=== PATIENT | female | born 1960 | race African-American/Black ===

== ENCOUNTER 2016-11-22 16:38 | Outpatient (CLI) ==
[2015-10-22 20:38] VITALS: BMI 31.2
[2016-11-22 17:08] LABS: FLU INTERNAL QC INTERNAL QC VALID; RAPID FLU A NEGATIVE (NEGATIVE); RAPID FLU B NEGATIVE (NEGATIVE)
== END 2016-11-22 16:39 | disposition home or self-care (01) ==
LOC: LAB 16:38
PROVIDERS: ATTEND Nurse Practitioner Family
DX: R50.9 Fever, unspecified (principal); R52 Pain, unspecified
CPT/HCPCS: 87651; 87804; 87880

== ENCOUNTER 2017-10-09 15:09 | Outpatient (RCR) ==
[2015-10-22 20:38] VITALS: BMI 31.2
--- NOTE | 2017-10-10 14:47 | RS.OPPTEV2 ---
Date of Note: 10/09/17 Visit #: 1 Date of Evaluation: 10/09/17 Payer Source: Medicaid Surgery Performed?: No Treatment Diagnosis: R posterior tibial tendonitis History of Condition/Mechanism of Injury:: pt states that she began having pain approx 6 months ago. No definitive injury noted. Prior Level of Function.....Patient was independent with: ADL's, Self Care, Work /Vocation, Ambulation/Mobility, Community Integration/Access Functional Limitations: Standing, Ambulation Current Subjective/complaints:: pt states that her pain is worst in am when first standing on R LE or after sitting for a while and standing. pt reports it doesn't seem to matter which shoes she is wearing. Treatment Side (optional): Right *Precautions: n/a Medical History Medical History: Unremarkable Smoking Status: Current every day smoker Hx Home Medications: no current medications Patient's Goals: to decrease pain in R medial ankle. Pain Assessment - Pain Description Pain Location: R medial ankle posterior to malleolus Pain Description: Sharp, Aching Current Pain Intensity: 6/10 Functional Outcome Measure LE Functional Scale: 59 (26%) - G Codes & Severity Modifier G Codes & Modifier: n/a Source of G Code score: n/a Observation - Observation Inspection: min edema noted in R medial ankle Posture: Forward Head, Rounded Shoulders Handedness: Right Gait - Gait Pattern Gait Comments: pt presents with B foot pronation R worse than L General Range of Motion: WFL's all 4 extr's Muscle Strength: BUE 5/5. LLE 5/5. RLE hip flex 5/5, knee flex/ext 4+/5, ankle 4+/5 Ankle ROM: Left WFL's Ankle Muscle Strength: Left WFL's - Right Ankle ROM Right Ankle/Foot ROM Limitations: Pain Comments: pt ROM R ankle equal to L, WFL's pt c/o pain with DF and Inversion and Eversion Palpation Palpation Findings: Tenderness Comments:: R medial ankle posterior to malleolus Sensation - Sensation Right Upper Extremity: Intact/Normal Left Upper Extremity: Intact/Normal Right Lower Extremity: Intact/Normal Left Lower Extremity: Intact/Normal Balance - Sitting Balance Static Sitting Balance: Normal Dynamic Sitting Balance: Normal - Standing Balance Static Standing Balance: Normal Dynamic Standing Balance: Normal - Comments Balance Assessment Comments: good dyn stand balance - Treatment Modality: Ultrasound Parameters/Method Applied: 1.2w/cm2 x 7 mins Treatment Area: R medial ankle Patient Position: Supine - Heat/Cryotherapy Treatment: Cryotherapy Comments:: R ankle Interventions - Exercise/Activities/Manual Therapy Exercises/Activities: pt instructed in heel cord towel stretch, ankle alphabet, toe curls, standing heel cord stretch. Manual Therapy: n/a HOME EXERCISE PROGRAM: pt given written HEP including calf towel stretch, toe curls, ankle alphabet and standing heel cord stretch. - Charges Timed Code Treatment Minutes: 48 Total Treatment Time: 60 Procedures billed for this date of service:: [facility] ultrasound cold pack Assessment Assessment: pt presents with pain and min edema R medial ankle. pt also presents with pronation B ankles R worse than L. Feel pt would benefit from skilled PT for therex for strengthening, ROM as well as modalities to decreased inflammation and pain. Advised pt to speak with MD regarding custom orthotics for B feet to correct pronation and decrease strain to tendon. Patient Education: Home Exercise Program, Activity Modification, Education of Plan of Care Rehab Potential: Good Short Term Goals Goal #1: pain R medial ankle <5/10 Goal to be met by: 10/17/17 Goal #2: pt with no edema R medial ankle Goal to be met by: 10/17/17 Education Department Registrar Goals Goal #1: pt able to stand during a normal work day with min foot pain. Goal to be met by: 10/24/17 Goal #2: pt amb community distances with min foot pain Goal to be met by: 10/24/17 Plan - Treatment to be Provided Procedures: Therapeutic Exercises, Therapeutic Activity, Gait Training, Manual Therapy, Patient Education Modalities: Electrical Stimulation, Ultrasound/Phonophoresis, Class IV Laser, Cryotherapy, Hot Packs - Treatment Plan Frequency: 2 X week Duration: 6 weeks ORDER # VISITS AND/OR THROUGH DATE: 11/20/17 - Treatment Code (1) Ankle pain Code(s): M25.579 - PAIN IN UNSPECIFIED ANKLE AND JOINTS OF UNSPECIFIED FOOT Qualifiers: Chronicity: chronic Laterality: right Qualified Code(s): M25.571 - Pain in right ankle and joints of right foot; G89.29 - Other chronic pain; G89.29 - Other chronic pain (2) Posterior tibial tendinitis, right leg Code(s): M76.821 - POSTERIOR TIBIAL TENDINITIS, RIGHT LEG
--- NOTE | 2017-10-16 14:43 | RS.OPPTDC ---
Date of Discharge: 10/13/17 Date of Evaluation: 10/09/17 Number of Visits: 1 Treatment Diagnosis: R posterior tibial tendonitis Current Level of Function: pt remains at same functional level as eval. Current Complaints/Gains: pt called and stated PT not helping so she wants to stop PT at this time. Functional Outcome Measure - G Codes & Severity Modifier G Codes & Modifier: n/a Source of G Code score: n/a Observation - Observation Posture: Forward Head, Rounded Shoulders, Increased Thoracic Kyphosis Gait - Gait Pattern General Gait Pattern Observation: Antalgic Gait Interventions - Exercise/Activities/Manual Therapy Exercises/Activities: n/a Manual Therapy: n/a HOME EXERCISE PROGRAM: pt given written HEP including calf towel stretch, toe curls, ankle alphabet and standing heel cord stretch. - Charges Timed Code Treatment Minutes: n/a Total Treatment Time: n/a Procedures billed for this date of service:: n/a Assessment Assessment: pt did not achieve goals due to only received PT eval and called to stop any further PT visits. 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 Goal to be met by: 10/24/17 Progress towards goal: Not Met Goal #2: pt amb community distances with min foot pain Goal to be met by: 10/24/17 Progress towards goal: Not Met Plan Reason for Discharge:: Poor Attendance/Compliance Comments: DC per patient request.
== END 2017-10-25 ==
DX: M77.9 Enthesopathy, unspecified (principal)

== ENCOUNTER 2017-10-19 12:29 | Outpatient (CLI) ==
[2015-10-22 20:38] VITALS: BMI 31.2
== END 2017-10-19 12:30 | disposition home or self-care (01) ==
LOC: LAB 12:29
PROVIDERS: ATTEND Nurse Practitioner Family
DX: R05 Cough (principal)
CPT/HCPCS: 87502

== ENCOUNTER 2017-11-10 13:00 | Outpatient (CLI) ==
[2015-10-22 20:38] VITALS: BMI 31.2
--- NOTE | 2017-11-13 08:28 | MAMMO ---
EXAM: Bilateral digital screening mammogram (2-D and 3-D) History: Screening Comparison: Bilateral mammogram 09/28/2015 Findings: MLO and CC views of bilateral breasts demonstrate heterogeneously dense breast parenchyma which can obscure small lesions. CAD was reviewed by the radiologist. Tomosynthesis was performed. Stable benign coarse calcification within the right breast. There are no dominant masses, no suspic ious microcalcifications and no architectural distortions. Impression: Benign stable mammogram. Recommend followup routine screening mammogram in 1 year. BIRADS 2
== END 2017-11-10 13:01 | disposition home or self-care (01) ==
LOC: RAD 13:00
PROVIDERS: ATTEND Nurse Practitioner Family
DX: Z12.31 Encounter for screening mammogram for malignant neoplasm of breast (principal)
CPT/HCPCS: 77067

== ENCOUNTER 2018-08-03 09:01 | Outpatient (CLI) ==
[2015-10-22 20:38] VITALS: BMI 31.2
--- NOTE | 2018-08-03 11:09 | US ---
EXAM: Right upper quadrant abdominal ultrasound. History: Abdominal pain and nausea. Technique: Multiple sonographic images through the abdomen were obtained. Color duplex Doppler was used to interrogate vascular flow. Findings: The liver is not enlarged according to the sonographic measurement given. No focal liver lesions angel ntified sonographically. There is antegrade flow within the main portal vein. Visualized pancreas d emonstrates no gross abnormality. Limited visualization of the right kidney demonstrates no evidence for hydronephrosis. No shadowing gallstones. Gallbladder wall is not thickened. Common bile duct measures 0.3 cm in caliber. Impression: Unremarkable exam
== END 2018-08-03 09:02 | disposition home or self-care (01) ==
LOC: RAD 09:01
PROVIDERS: ATTEND Nurse Practitioner Family
DX: R10.9 Unspecified abdominal pain (principal); R11.2 Nausea with vomiting, unspecified

== ENCOUNTER 2018-10-20 08:58 | Outpatient (CLI) ==
[2015-10-22 20:38] VITALS: BMI 31.2
== END 2018-10-20 08:59 | disposition home or self-care (01) ==
LOC: LAB 08:58
PROVIDERS: ATTEND Nurse Practitioner Family
DX: Z00.00 Encounter for general adult medical examination without abnormal findings (principal)
CPT/HCPCS: 36415; 80053; 80061; 84443; 85025

== ENCOUNTER 2018-10-30 13:38 | Outpatient (CLI) ==
[2015-10-22 20:38] VITALS: BMI 31.2
== END 2018-10-30 13:39 | disposition home or self-care (01) ==
LOC: RHC-LAB 13:38
PROVIDERS: ATTEND Nurse Practitioner Family
DX: R05 Cough (principal)
CPT/HCPCS: 87502; 87651

== ENCOUNTER 2018-12-21 10:17 | Outpatient (CLI) ==
[2015-10-22 20:38] VITALS: BMI 31.2
--- NOTE | 2018-12-21 12:24 | MAMMO ---
EXAM: Digital screening mammogram with tomosynthesis HISTORY: Screening COMPARISON: 11/10/2017 FINDINGS: Digital MLO and CC views of the right and left breast were performed. Tomosynthesis was p erformed. Computer aided detection utilized. The breast tissue is heterogeneously dense, which coul d obscure small masses. Benign calcification right breast. There is no evidence for mass, asymmetry , distortion, or suspicious calcifications in either breast. IMPRESSION: 1. No evidence of malignancy in the right or left breast. 2. Annual screening mammogram is recommended in one year. BIRADS category 2, benign
== END 2018-12-21 10:18 | disposition home or self-care (01) ==
LOC: RAD 10:17
PROVIDERS: ATTEND Nurse Practitioner Family
DX: Z12.31 Encounter for screening mammogram for malignant neoplasm of breast (principal)